=== PATIENT | male | born 1950 | race Caucasian/White ===

== ENCOUNTER 2023-03-16 11:43 | Outpatient (AMB) | payer MEDICARE, SELFPAY ==
--- NOTE | 2023-03-16 13:15 | AM.OFFWIN_ITS ---
Intake Vital Signs 03/16/23 13:20 Height 5 ft 11 in Weight 179 lb BMI 25.0 BP 120/72 Blood Pressure Location Lt brachial Position Sitting Pulse 67 Pulse Source Pulse Oximeter Temp 97.6 F Temp Source Temporal Artery Scan Pulse Oximetry (%) 97 Oxygen Delivery Method Room Air Intake Visit Reasons: [employer] RT Foot Blister/Rash [phone] Intake Note: Pt is here c/o blister/rash on his right foot for about 2-3 days. Pt also states he was stung by a bee on the same spot. Patient Tobacco Use Status: Never used Tobacco Allergies No Known Allergies Allergy (Verified 03/16/23 13:20) Do you need a note to return to daycare/school/sports/work: No HPI [employer] RT Foot Blister/Rash [phone] HPI Details Patient is a 72-year-old male comes to the with they stated that [place] and soon after his right posterior ankle became blistered, with surrounding redness, soreness, and swollen. His incised it with a needle and states that yellowish fluid drained out. It then build up again today. Apparently he had a bee sting as well as mosquito bites to the posterior calf and ankle prior to this. He denies allergic reaction to the insect bites, and states that there was no initial swelling, redness, pain or discharge. He denies underlying immuno compromising issues, and denies fever or chills, nausea vomiting or diarrhea, malaise or myalgias, weakness or dizziness, headache, or other significant associated symptoms. PFSH Social History Patient Tobacco Use Status: Never used Tobacco Review of Systems Const All systems reviewed & are unremarkable except as noted in HPI and below Physical Exam Vital Signs: Last Vital Signs Temp 97.6 F 03/16/23 13:20 Pulse 67 03/16/23 13:20 BP 120/72 03/16/23 13:20 Pulse Ox 97 03/16/23 13:20 Oxygen Delivery Method Room Air 03/16/23 13:20 BMI result Body Mass Index 25.0 Const General: cooperative, healthy appearing, comfortable, no acute distress, alert, awake, Physically active and well groomed; No anxious, diaphoretic, ill appearing, intoxicated appearing, poor hygiene or tired appearing Nutritional Appearance: average body habitus Limitations: no limitations Resp Effort & Inspection: normal respiratory effort Cardio Rate: regular rate Extrem Right lower extremity: full ROM, normal capillary refill, edema Details: non- pitting and 1+ and ankle; no cyanosis Left lower extremity: ankle Details: abnormal to inspection, tenderness, swelling and other (Approximately 1 in blister to the right posterior ankle, some edema, erythema and warmth surrounding. No streaking. No induration or fluctuance.) and foot Details: vascular exam Details: dorsalis pedis pulse present and posterior tibial pulse present Psych Appearance: grossly normal Mental Status: mental status grossly normal Speech and movement: Normal speech and movement present Affect: normal affect Attitude: cooperative Thought process: Normal thought process present Insight: Good insight present (Psych) Judgement: Good judgement present (Psych) Assessment & Plan Assessment & Plan (1) Cellulitis: Code(s): L03.90 - Cellulitis, unspecified Plan: Patient with apparent cellulitis to the right posterior ankle area. Apparently he had some insect bites to the area which are extremely itchy, and then [place] and his feet were swollen the following day. Patient's had incised the blistered area yesterday, with apparent serous fluid drainage. The area swelled up again today, and there is some surrounding redness and warmth. Pending routine culture from incised area. Patient cannot take Bactrim, so I started him on doxycycline today. He was also advised to soak the ankle few times today in warm Epsom salt baths, and to keep it elevated as much as able. If symptoms persist or worsen in the next few days, they will follow up here again here, or they know to go to the emergency department with worrisome symptoms. Orders: Orders Routine Culture w Gram Stain 03/16/23 L03.90 - Cellulitis, unspecified Medications: New doxycycline hyclate 100 mg PO BID 10 days 20 caps 0RF Coding Level of Care Code New Pt Level 4 (11075) Diagnoses Cellulitis L03.90
[2023-03-16 13:20] VITALS: BP 120/72; PULSE 67; TEMP 36.4; O2SAT 97; BMI 25.0
== END 2023-03-16 14:25 | disposition home or self-care (01) ==
PROVIDERS: Visit Provider Physician Assistant Medical
DX: L03.90 Cellulitis, unspecified (principal)
CPT/HCPCS: 99204

== ENCOUNTER 2023-03-16 19:42 | Outpatient (REF) | payer MEDICARE, SELFPAY | END 2023-03-16 19:43 | disposition home or self-care (01) | LOC: HO.LNP 19:42 | PROVIDERS: Visit Provider Physician Assistant Medical | DX: L03.90 Cellulitis, unspecified (principal) | CPT/HCPCS: 87070; 87205 ==